=== PATIENT | female | born 1990 | race Hispanic/Latino ===

== ENCOUNTER 2018-12-21 15:17 | Outpatient (CLI) | payer BC ==
--- NOTE | 2018-12-21 17:07 | ULT ---
ULTRASOUND OBSTETRICAL COMPLETE: DATE: 12/21/2018 HISTORY: ICD-10: Z 34.80, normal in multigravida." 28-year-old female. FINDINGS: 2.5 x 2 x 2 cm mass with mixed echogenicity, at uterine fundus indenting the gestational sac. 1 x 1 x 1.5 cm hypoechoic small lesion in the anterior myometrium (currently visualized within of Br axton Ernie contraction indenting the gestational sac). number:Penny lie:Cephalic Maternal cervix:5.0 cm. Closed. Placenta:Posterior.. No placenta previa. Amniotic fluid: Subjectively within normal limits. LOVE not measured. heart rate:146 bpm. The following anatomy is visualized without evidence of anomalies: Head, cerebellum, lateral ventricles, four-chamber heart, stomach, kidneys, cord insertion, bladder, cervical spine, thoracic spine, lumbar spine, sacrum, nose and lips, upper extremities, lower extreme venous, and three-vessel cord. biometry: BPD: 3.9 cm: 18 w 0 d HC: 14.7 cm: 17 w 6 d AC:12.9 cm: 18 w 3 d FL:2.9 cm: 18 w 6 d Average ultrasound age: 18 w 2 d Estimated date of delivery: 05/22/2019 Estimated weight: 242 g + -35 g IMPRESSION: 1) 2nd trimester intrauterine gestation. 2) estimated gestational age of: 18 weeks 2 days 3) lie:Cephalic 4) no anatomic abnormality identified. 5) 2.5 x 2 x 2 cm mass at uterine fundus indenting the gestational sac. Exact etiology uncertain, but possibly in the uterine leiomyoma (fibroid). Recommend follow-up. 6) 1 x 1 x 1.5 cm hypoechoic small lesion in the anterior myometrium. Exact etiology uncertain, but perhaps another uterine leiomyoma (fibroid).
== END 2018-12-21 15:18 | disposition home or self-care (01) ==
LOC: BICULT 15:17
PROVIDERS: ATTEND Family Medicine
DX: Z34.80 Encounter for supervision of other normal pregnancy, unspecified trimester (principal); Z3A.18 18 weeks gestation of pregnancy; O34.82 Maternal care for other abnormalities of pelvic organs, second trimester
CPT/HCPCS: 76805

== ENCOUNTER 2019-01-30 11:40 | Emergency (ER) | payer BC ==
[2019-01-30] MEDS ORDERED: Acetaminophen 500 MG TAB ONE (13:09)
== END 2019-01-30 13:23 | disposition home or self-care (01) ==
LOC: ERS 11:40
DX: O99.89 Other specified diseases and conditions complicating pregnancy, childbirth and the puerperium (principal); M54.6 Pain in thoracic spine; Z3A.24 24 weeks gestation of pregnancy
CPT/HCPCS: 99283

== ENCOUNTER 2019-04-12 12:44 | Inpatient (IN) | payer BC ==
[2019-04-12 13:33] VITALS: BP 99/59; TEMP 98.2; BMI 33.4
[2019-04-12] MEDS ORDERED: Betamet Acet/Betamet Na Ph 30 MG/5 ML VIAL ONE (13:56)
[2019-04-12] MEDS ORDERED: Lactated Ringer's 1,000 ML IV SCH (14:00)
--- NOTE | 2019-04-12 14:17 | PDOC.FPROB ---
FMR OB H&P: HPI - History of Present Illness Chief Complaint: Contractions Indentification: 28 year old at 34.4 wks History of Present Illness: 28 year old at 34.4 wks presents with contractions since 6:00 AM. Patient states that from 8:00 AM to 10:00 AM, contractions were intense and every 3 minutes apart. They have since decreased in intensity and frequency. Official records pending at this time. Patient declined progesterone during this . Patient has history of anemia. She has not started her oral iron supplementation yet. No other complications in this . Denies vaginal bleeding, vaginal discharge, LoF. Endorses movement. Primary Care Physician: Dr. Onur Avalos FMR OB H&P: Current - Care : 4 Para: 2103 Gestational age: 34.4 wks Due date: 05/16/2019 Dating Criteria: 11.3 wk sono - OB Labs Blood type: A RH: positive Antibody Screen: negative HIV: negative RPR: negative HepBsAg: negative Rubella: immune Gonorrhea: negative Chlamydia: negative 1 hour gtt: 112 GBS: unknown FMR OB H&P: History - Past Medical History PMH: Denies any significant PMH - OB History OB History: Anemia of Hx PPROM w/ PTD at 36.6 wks - [employer] History [employer] PRO[employer] MA[employer]GER History: Denies history of STD's or PID. - Surgical History Sx History: Denies - Social History Social History: Denies alcohol, tobacco, or drug use - Family History Family History: Denies FMR OB H&P: Medications - Current Home Medications: Medication Instructions Recorded Confirmed Type Vitamin 1 tablet PO DAILY 08/23/15 04/12/19 History Allergies/Adverse Reactions: Allergies Allergy/AdvReac Type Severity Reaction Status Date / Time No Known Drug Allergies Allergy Mild Verified 04/12/19 17:55 FMR OB H&P: ROS - Review of Systems General: denies: fever/chills, weight/appetite/sleep changes Eyes: denies: vision changes, double vision ENT: denies: nasal congestion, sore throat Cardiovascular: denies: chest pain, palpitation, edema Gastrointestinal: reports: abdominal pain. denies: nausea, vomiting, diarrhea Genitourinary (Female): reports: contractions. denies: dysuria, vaginal discharge, vaginal pain, vaginal bleeding Musculoskeletal: denies: pain, stiffness Neurologic: denies: numbness, syncope, weakness Integumentary: denies: itching, rash, lesions Hematologic/Lymphatic: denies: prolonged or excessive bleeding Psychological: denies: depression, anxiety FMR OB H&P: Vital Signs - Maternal Vital signs: Vital Signs - First Documented Temp Resp BP 98.2 F 16 99/59 L 04/12/19 13:28 04/12/19 13:28 04/12/19 13:28 - Heart Tones Baseline: 135 Variability: moderate Acceleration: present Deceleration: absent Category: category 1 [place] contractions every: q5 min FMR OB H&P: Physical Exam - Physical Exam General: NAD, awake, alert and oriented HEENT: MMM, grossly normal vision, grossly normal hearing Heart: RRR General: no respiratory distress, no wheezing Abdomen: soft, gravid, non-tender Musculoskeletal: pulses present, FROM in all four extremities Neurological: no tremor, no focal deficit Skin: no rash, capillary refill <2 seconds Lymphatic: no unusual bruising or bleeding Psychiatric: intact recent and remote memory, good judgement and insight, normal mood and affect - Pelvic Exam SVE: FMR OB H&P: A/P - Problem List (1) Current Visit: Yes Status: Acute Qualifiers: Weeks of gestation: 35 weeks Qualified Code(s): Z3A.35 - 35 weeks gestation of (2) Anemia Current Visit: Yes Status: Acute Code(s): D64.9 - ANEMIA, UNSPECIFIED (3) contractions Current Visit: Yes Status: Acute Code(s): O47.9 - FALSE LABOR, UNSPECIFIED Disposition: 28 year old at 35.1 wks presents with contractions 1. sIUP with contractions; PTL - IV fluid hydration - on initial check, 5 cm on recheck - Contractions q5 min on monitor - Category I strip - Steroids x1, repeat in 24 hours if patient has not delivered - Will obtain vaginal swabs to identify possible etiology of PTL (VP3, GC/CT) - GBS obtained, patient and will need antibiotic ppx 2. Anemia of - Has not yet started oral iron supplementation Dispo: Patient in labor. Admit to L&D. GBS ppx. Expectant management. Dr. Avalos notified. Discussion: Date/Time: 04/12/19 3841 This H&P was discussed with Dr. Obregon who agrees with the above documentation and plan. Signature: Afshan Patino, DO PGY-3 Addendum - Attending - Attending Attestation Date/Time: 04/12/19 3093 I personally evaluated the patient and discussed the management with Dr. Patino. I agree with the History, Examination, Assessment and Plan documented above.
[2019-04-12] MEDS: Betamet Acet/Betamet Na Ph 30 MG/5 ML VIAL IM SCH (14:45)
[2019-04-12] MEDS ORDERED: Ibuprofen 800 MG TAB PO PRN (15:21)
[2019-04-12] MEDS ORDERED: Lidocaine 1% (PF) 30 ML VIAL SC PRN (15:21)
[2019-04-12] MEDS ORDERED: Diphenoxylate HCl/Atropine Tablet PO PRN ×2 (15:21)
[2019-04-12] MEDS ORDERED: Promethazine HCl 25 MG/ML VIAL IM PRN (15:21)
[2019-04-12] MEDS ORDERED: hydrALAZINE 20 MG/ML VIAL SLOW IVP PRN (15:21)
[2019-04-12] MEDS ORDERED: Butorphanol Tartrate 1 MG/ML VIAL SLOW IVP PRN (15:21)
[2019-04-12] MEDS ORDERED: Misoprostol 200 MCG TAB PR PRN (15:21)
[2019-04-12] MEDS ORDERED: NS / Oxytocin 40 units/1000ml 1,000 ML IV PRN (15:21)
[2019-04-12] MEDS ORDERED: Ondansetron PF 4 MG/2 ML Vial IVP PRN (15:21)
[2019-04-12] MEDS ORDERED: Carboprost 250 MCG/ML AMP IM PRN (15:21)
[2019-04-12] MEDS ORDERED: Methylergonovine 0.2 MG/ML VIAL IM PRN (15:21)
[2019-04-12] MEDS ORDERED: Penicillin G Potassium 5 MILL.UNITS VIAL ONE (15:25)
[2019-04-12] MEDS ORDERED: Penicillin G Potassium 5 MILL.UNITS in Sodium Chloride 0.9% 100 ML IVPB SCH (15:30)
[2019-04-12] MEDS: Lactated Ringer's 1,000 ML IV SCH (15:42)
[2019-04-12 16:34] LABS: Hemoglobin 12.1 g/dL (12.0-16.0); Mean Corpuscular HGB CONC 33.3 g/dL (32.0-36.0); Mean Corpuscular Volume 81.3 fL (78.0-98.0); Mean Platelet Volume 8.4 fL (7.4-10.4); Platelet Count 282 thou/uL (130-400); RBC Distribution Width 12.5 % (11.5-14.5); Red Blood Cell (RBC) Count 4.46 mill/uL (4.20-5.40); White Blood Cell (WBC) Count 8.8 thou/uL (4.8-10.8)
[2019-04-12 17:15] LABS: Syphilis Antibody Nonreactive (Nonreactive); Syphilis Antibody Index 0.05 S/CO (<1.00 Non-Reactive)
[2019-04-12 17:16] LABS: HBSAg Index 0.16 S/CO (0-0.99); Hep B Surf Ag Non-Reactive S/CO (NonReactive)
[2019-04-12] MEDS: Penicillin G 2.5 MILL.units 2.5 MILL.UNITS in Premix Bag 1 BAG IVPB SCH ×2 (19:41→23:47)
[2019-04-12] MEDS ORDERED: Acetaminophen 500 MG TAB PO PRN (21:50)
[2019-04-13] MEDS: Lactated Ringer's 1,000 ML IV SCH (01:51)
[2019-04-13] MEDS: Penicillin G 2.5 MILL.units 2.5 MILL.UNITS in Premix Bag 1 BAG IVPB SCH (04:41)
--- NOTE | 2019-04-13 08:25 | DIS ---
DATE OF ADMISSION: 04/12/2019 DATE OF DISCHARGE: 04/13/2019 DISCHARGE DIAGNOSES: 1. A 34-week and 4-day intrauterine . 2. contractions with cervical change. 3. labor arrested. HOSPITAL COURSE: Ms. Armendariz is a 28-year-old [place] female, G4, P2-1-0-3 at 34 weeks and 4 days gestation, followed at my clinic for her care, who presented with contractions onset at 6 o'clock that morning. She presented to Labor and Delivery approximately 10:00 a.m., stated that contractions were very intense every 3 minutes apart. Since presenting to Labor and Delivery, they have somewhat decreased in intensity and frequency. She was noted initially to have a cervix of 4 cm, 70% effaced. She was started on IV fluids, given one dose of IM steroids at approximately 4:00 p.m., also started on IV penicillin for GBS prophylaxis as status was unknown at that time. Past medical history is significant for care at my clinic. Significant for patient noncompliant with recommendations for 17-hydroxyprogesterone IM weekly due to her previous history of delivery, otherwise uneventful. Past medical history is significant for 2 normal vaginal deliveries at 40 weeks followed by a 36-week premature spontaneous rupture of membranes and subsequent vaginal delivery. On initial presentation, the patient was afebrile. Blood pressure normal. Abdomen is soft. Contractions every 3 minutes, moderate to severe in intensity, requesting pain medications at that time. Cervix is noted about 4 cm, 70% effaced. She was monitored for approximately 2 hours, noted she did have cervical change to 5 cm, 80% effaced. She was given IV Stadol for her pain. The patient's last contractions spaced every 5 to 7 minutes. She was evaluated later that evening. She continued to have no cervical change. Contractions began to space through the night every 10 to 16 minutes, very mild. No cervical change consultant 16 hours. Continued to receive IV penicillin. She was given a second dose of steroids approximately 18 hours after her first dose. She had a CBC with a normal white count of 8.8, hemoglobin at 12. The patient is requesting to be discharged home. Discussed all risks and alternatives with the patient. Actually, recommend continued monitoring, but the patient adamant to be discharged. She will be discharged home with precautions of contractions increasing in intensity or frequency to immediately present to [facility] for readmit. Otherwise, she will follow up in my office in 2 days. Job ID: [id number]
[2019-04-13] MEDS: Betamet Acet/Betamet Na Ph 30 MG/5 ML VIAL IM SCH (09:14)
[2019-04-16 00:40] LABS: Chlamydia by PCR Not Detected (NotDetected); GC by PCR Not Detected (NotDetected)
== END 2019-04-13 09:29 | disposition home or self-care (01) | DRG 833 ==
LOC: L&D/OP 12:44 → L&D 20:01
PROVIDERS: ADMIT Family Medicine; ATTEND Family Medicine
DX: O60.03 Preterm labor without delivery, third trimester (principal); O99.013 Anemia complicating pregnancy, third trimester; D64.9 Anemia, unspecified; Z3A.34 34 weeks gestation of pregnancy
CPT/HCPCS: 36415; 85027; 86780; 86850; 86900; 86901; 87081; 87340; 87480; 87491; 87510; 87591; 87660; 99285; J0595; J0702; J2540

== ENCOUNTER 2019-05-08 19:03 | Inpatient (IN) | payer BC ==
[2019-05-09] MEDS ORDERED: Ondansetron PF 4 MG/2 ML Vial IVP PRN ×2 (01:21→14:08)
[2019-05-09] MEDS ORDERED: NS / Oxytocin 40 units/1000ml 1,000 ML IV PRN (01:21)
[2019-05-09] MEDS ORDERED: Promethazine HCl 25 MG/ML VIAL IM PRN (01:21)
[2019-05-09] MEDS ORDERED: hydrALAZINE 20 MG/ML VIAL SLOW IVP PRN ×2 (01:21→14:08)
[2019-05-09] MEDS ORDERED: Lidocaine 1% (PF) 30 ML VIAL SC PRN (01:21)
[2019-05-09] MEDS ORDERED: Acetaminophen 500 MG TAB PO PRN (01:21)
[2019-05-09] MEDS ORDERED: Lactated Ringer's 1,000 ML IV SCH (01:30)
[2019-05-09 02:38] VITALS: BMI 30.9
[2019-05-09 03:20] LABS: Mean Corpuscular HGB CONC 33.9 g/dL (32.0-36.0); Mean Corpuscular Hemoglobin 27.1 pg (27.0-31.0); Mean Corpuscular Volume 79.9 fL (78.0-98.0); Mean Platelet Volume 7.8 fL (7.4-10.4); Platelet Count 247 thou/uL (130-400); RBC Distribution Width 15.2 % (11.5-14.5); Red Blood Cell (RBC) Count 4.41 mill/uL (4.20-5.40); White Blood Cell (WBC) Count 6.9 thou/uL (4.8-10.8)
[2019-05-09 03:55] LABS: HBSAg Index 0.16 S/CO (0-0.99); Hep B Surf Ag Non-Reactive S/CO (NonReactive)
[2019-05-09 04:39] LABS: Syphilis Antibody Nonreactive (Nonreactive); Syphilis Antibody Index 0.04 S/CO (<1.00 Non-Reactive)
[2019-05-09] MEDS ORDERED: Butorphanol Tartrate 1 MG/ML VIAL ONE (09:35)
[2019-05-09] MEDS ORDERED: Butorphanol Tartrate 1 MG/ML VIAL SLOW IVP PRN (09:42)
[2019-05-09] MEDS ORDERED: traMADol HCl 50 MG TAB PO PRN (14:08)
[2019-05-09] MEDS ORDERED: diphenhydrAMINE 25 MG CAP PO PRN (14:08)
[2019-05-09] MEDS ORDERED: Benzocaine-Menthol 82.5 ML CAN TOP PRN (14:08)
[2019-05-09] MEDS ORDERED: HYDROcodone/Acetaminophen 5/325 mg Tablet PO PRN (14:08)
[2019-05-09] MEDS ORDERED: NS / Oxytocin 40 units/1000ml 1,000 ML IV SCH (14:08)
[2019-05-09] MEDS ORDERED: Preparation H Ointment 28 GM TUBE PR PRN (14:08)
[2019-05-09] MEDS ORDERED: Lanolin Ointment 7 GM TUBE TOP PRN (14:08)
[2019-05-09] MEDS ORDERED: Milk Of Magnesia 30 ML UDCUP PO PRN (14:08)
[2019-05-09] MEDS ORDERED: Bisacodyl 10 MG SUPP PR PRN (14:08)
[2019-05-09] MEDS: Docusate Calcium (SURFAK) 240 MG CAP PO SCH ×2 (15:51→21:33)
[2019-05-09] MEDS: Prenatal Vitamin 1 TAB PO SCH (15:51)
[2019-05-09] MEDS: Ibuprofen 800 MG TAB PO SCH ×2 (15:51→21:33)
[2019-05-09] MEDS: Ferrous Sulfate 325 MG TAB PO SCH (18:32)
[2019-05-09] MEDS ORDERED: FLU VACC QS2019-20(6MOS UP)/PF 60 MCG/0.5 ML SYRINGE IM ONE (21:00)
[2019-05-10] MEDS: Ibuprofen 800 MG TAB PO SCH ×3 (04:43→21:29)
[2019-05-10] MEDS: Acetaminophen/Codeine 30-300mg Tablet PO PRN ×3 (04:43→20:00)
[2019-05-10] MEDS: Ferrous Sulfate 325 MG TAB PO SCH ×2 (07:53→17:25)
[2019-05-10] MEDS: Prenatal Vitamin 1 TAB PO SCH (09:32)
[2019-05-10] MEDS: Docusate Calcium (SURFAK) 240 MG CAP PO SCH ×2 (09:32→21:29)
[2019-05-11] MEDS: Ibuprofen 800 MG TAB PO SCH ×2 (05:33→13:44)
[2019-05-11] MEDS: Prenatal Vitamin 1 TAB PO SCH (07:53)
[2019-05-11] MEDS: Docusate Calcium (SURFAK) 240 MG CAP PO SCH (07:53)
[2019-05-11 08:23] VITALS: BP 108/59; TEMP 99
[2019-05-11] MEDS: Ferrous Sulfate 325 MG TAB PO SCH (08:42)
== END 2019-05-11 13:50 | disposition home or self-care (01) | DRG 807 ==
LOC: L&D/OP 19:03 → L&D 05-09 01:21 → 3SW 05-09 14:21
PROVIDERS: ADMIT Family Medicine; ATTEND Family Medicine
PROC: 10E0XZZ Delivery of Products of Conception, External Approach (ICD-10-PCS; principal; 2019-05-09)
PROC: 0HQ9XZZ Repair Perineum Skin, External Approach (ICD-10-PCS; 2019-05-09)
DX: O70.0 First degree perineal laceration during delivery (principal); Z37.0 Single live birth; Z3A.38 38 weeks gestation of pregnancy
CPT/HCPCS: 36415; 85027; 86780; 86850; 86900; 86901; 87340; 99285; J0595

== ENCOUNTER 2021-03-12 22:51 | Emergency (ER) | payer BC ==
[2021-03-13] MEDS ORDERED: Ketorolac Tromethamine 30 MG/ML VIAL ONE (01:36)
== END 2021-03-13 01:32 | disposition home or self-care (01) ==
LOC: ERS 22:51
DX: G43.909 Migraine, unspecified, not intractable, without status migrainosus (principal); H53.8 Other visual disturbances
CPT/HCPCS: 93005; 96372; J1885

== ENCOUNTER 2021-04-26 13:02 | Outpatient (CLI) | payer BC | END 2021-04-26 13:03 | disposition home or self-care (01) | LOC: BICCT 13:02 | PROVIDERS: ATTEND Nurse Practitioner Family | DX: R51.9 Headache, unspecified (principal); D25.9 Leiomyoma of uterus, unspecified; N92.1 Excessive and frequent menstruation with irregular cycle; F33.1 Major depressive disorder, recurrent, moderate; F41.1 Generalized anxiety disorder | CPT/HCPCS: 70450 ==

== ENCOUNTER 2021-11-27 23:16 | Emergency (ER) | payer BC | END 2021-11-28 00:59 | disposition home or self-care (01) | LOC: ERS 23:16 | DX: S93.401A Sprain of unspecified ligament of right ankle, initial encounter (principal); W17.89XA Other fall from one level to another, initial encounter ==

== ENCOUNTER 2022-05-26 14:13 | Outpatient (CLI) | payer BC | END 2022-05-26 14:14 | disposition home or self-care (01) | LOC: BICULT 14:13 | PROVIDERS: ATTEND Physician Assistant | DX: R22.31 Localized swelling, mass and lump, right upper limb (principal) | CPT/HCPCS: 76999 ==